=== PATIENT | female | born 1990 | race Caucasian/White ===

== ENCOUNTER → 2018-12-12 | Outpatient (CLI) | payer BC, OTHER | END | disposition home or self-care (01) | LOC: CFH 07:18 | PROVIDERS: ATTEND Family Medicine | DX: Z12.31 Encounter for screening mammogram for malignant neoplasm of breast (principal); N64.89 Other specified disorders of breast; Z80.3 Family history of malignant neoplasm of breast | CPT/HCPCS: 77063; 77067 ==

== ENCOUNTER → 2018-12-27 | Outpatient (CLI) | payer BC | END | disposition home or self-care (01) | LOC: CFH 13:18 | PROVIDERS: ATTEND Family Medicine | DX: N63.10 Unspecified lump in the right breast, unspecified quadrant (principal) | CPT/HCPCS: 76642; 77065 ==

== ENCOUNTER → 2019-01-12 | Outpatient (CLI) | payer BC ==
[~2019-01-12] MED LIST: LIDOCAINE 1%, 20ML ONE; LIDOCAINE 1%-EPI 1:100K, 20ML ONE; SODIUM BICARBONATE 4.2%, 5ML ONE
== END | disposition home or self-care (01) ==
LOC: CFH 08:56
PROVIDERS: ATTEND Surgery
DX: D24.1 Benign neoplasm of right breast (principal); N63.10 Unspecified lump in the right breast, unspecified quadrant
CPT/HCPCS: 19083; 77065; 88305; J3490

== ENCOUNTER 2019-09-02 13:26 | Observation (INO) | payer BC ==
[~2019-09-02] VITALS: Ht 167.6 cm; Wt 104.5 kg
[2019-09-02 13:50] VITALS: BP 121/84
[2019-09-02 14:24] LABS: MICROSCOPIC NOT IND
[2019-09-02] MEDS ORDERED: TERBUTALINE 1 MG/ML, 1ML ONE (17:02)
[2019-09-02] MEDS ORDERED: TERBUTALINE 1 MG/ML, 1ML IV ONE (17:30)
== END 2019-09-02 18:00 | disposition home or self-care (01) ==
LOC: LDOP 13:26 → INTOOBSV 17:08 → LDIP 17:08
PROVIDERS: ADMIT Obstetrics & Gynecology; ATTEND Obstetrics & Gynecology
DX: O60.03 Preterm labor without delivery, third trimester (principal); O26.893 Other specified pregnancy related conditions, third trimester; R10.2 Pelvic and perineal pain; Z3A.32 32 weeks gestation of pregnancy; Z79.899 Other long term (current) drug therapy
CPT/HCPCS: 59025; 81003; 87086; 96374; G0378; J3105

== ENCOUNTER 2019-10-03 15:41 | Outpatient (CLI) | payer BC ==
[~2019-10-03] VITALS: Ht 167.6 cm; Wt 104.0 kg
[2019-10-03 16:25] LABS: BASOPHILS # (AUTO) 0.07 x10^3/uL (0-0.1); BASOPHILS % (AUTO) 1 % (0-1); EOSINOPHILS # (AUTO) 0.05 x10^3/uL (0-0.4); EOSINOPHILS % (AUTO) 1 % (1-7); LYMPHOCYTES # (AUTO) 1.96 x10^3/uL (1-3.4); LYMPHOCYTES % (AUTO) 20 % (22-44); MD NO; MEAN CORPUSCULAR HEMOGLOBIN 30.1 pg (27.0-34.8); MEAN CORPUSCULAR HGB CONC 33.6 g/dL (32.4-35.8); MEAN CORPUSCULAR VOLUME 89.6 fL (80-100); MEAN PLATELET VOLUME 10.6 fL (7.4-10.4); MONOCYTES # (AUTO) 0.52 x10^3/uL (0.2-0.8); MONOCYTES % (AUTO) 5 % (2-9); NEUTROPHILS # (AUTO) 7.07 x10^3/uL (1.8-6.8); NEUTROPHILS % (AUTO) 73 % (42-75); PLATELET COUNT 251 x10^3/uL (130-400); RED BLOOD COUNT 3.74 x10^6/uL (3.82-5.3); RED CELL DISTRIBUTION WIDTH 12.9 % (9.6-15.2)
[2019-10-03 16:26] VITALS: BP 157/88
[2019-10-03 16:35] LABS: CREATININE,URINE RANDOM 30.7 mg/dL
[2019-10-03 16:35] LABS: ALBUMIN 2.6 g/dL (3.4-5.0); ANION GAP 6 mmol/L (5-15); CALCIUM 8.8 mg/dL (8.5-10.1); CHLORIDE 111 mmol/L (98-107)
[2019-10-03 16:40] LABS: ALANINE AMINOTRANSFERASE 18 U/L (12-78); ALKALINE PHOSPHATASE 95 U/L (45-117); BILIRUBIN,TOTAL 0.3 mg/dL (0.2-1.0); CREATININE 0.73 mg/dL (0.55-1.02); TOTAL PROTEIN 6.4 g/dL (6.4-8.2)
[2019-10-03 16:41] LABS: BILIRUBIN, DIRECT < 0.1 mg/dL (0.1-0.2)
[2019-10-03 16:44] LABS: MICROSCOPIC INDICATED
[2019-10-03] MEDS ORDERED: PREN1TAB60 PO (17:34)
[2019-10-03] MEDS ORDERED: LEVO50TA5 PO (17:35)
== END 2019-10-03 17:50 | disposition home or self-care (01) ==
LOC: LDOP 15:41
PROVIDERS: ATTEND Obstetrics & Gynecology
DX: O13.3 Gestational [pregnancy-induced] hypertension without significant proteinuria, third trimester (principal); Z3A.36 36 weeks gestation of pregnancy
CPT/HCPCS: 36415; 59025; 80053; 81001; 82248; 82570; 84156; 84550; 85025

== ENCOUNTER 2019-10-05 07:53 | Inpatient (IN) | payer BC ==
[~2019-10-05] VITALS: Ht 167.6 cm; Wt 103.6 kg
[~2019-10-05 07:53] MED LIST changes: +LEVO50TA5 PO; -LIDOCAINE 1%, 20ML ONE; -LIDOCAINE 1%-EPI 1:100K, 20ML ONE; +PREN1TAB60 PO; -SODIUM BICARBONATE 4.2%, 5ML ONE
[2019-10-05] MEDS ORDERED: D5%-LACTATED RINGERS 1,000 ML IV SCH (20:15)
[2019-10-05] MEDS ORDERED: OXYTOCIN 30U/ 0.9% NaCL 500ML 500 ML IV ONE (20:15)
[2019-10-05] MEDS ORDERED: MISOPROSTOL 25 MCG TABLET ONE (20:23)
[2019-10-05] MEDS ORDERED: NEWBORN KIT ONE (20:23)
[2019-10-05] MEDS ORDERED: OXYTOCIN 30U/ 0.9% NaCL 500ML 500 ML ONE (20:23)
[2019-10-05] MEDS ORDERED: MISOPROSTOL 25 MCG TABLET VG PRN (20:30)
[2019-10-05] MEDS ORDERED: TERBUTALINE 1 MG/ML, 1ML SQ PRN (20:30)
[2019-10-05] MEDS ORDERED: FENTANYL PF 100 MCG/2ML IV PRN (20:30)
[2019-10-05] MEDS ORDERED: FENTANYL PF 100 MCG/2ML IVPush PRN (20:30)
[2019-10-05] MEDS ORDERED: ONDANSETRON 2MG/ML, 2ML IVPush PRN (20:30)
[2019-10-05] MEDS ORDERED: CALCIUM CARBONATE 500 MG TAB.CHEW PO PRN (20:30)
[2019-10-05] MEDS ORDERED: TERBUTALINE 1 MG/ML, 1ML IVPush PRN (20:30)
[2019-10-05 20:46] LABS: BASOPHILS # (AUTO) 0.06 x10^3/uL (0-0.1); BASOPHILS % (AUTO) 1 % (0-1); EOSINOPHILS # (AUTO) 0.03 x10^3/uL (0-0.4); EOSINOPHILS % (AUTO) 0 % (1-7); LYMPHOCYTES # (AUTO) 1.87 x10^3/uL (1-3.4); LYMPHOCYTES % (AUTO) 17 % (22-44); MD NO; MEAN CORPUSCULAR HEMOGLOBIN 29.5 pg (27.0-34.8); MEAN CORPUSCULAR HGB CONC 32.6 g/dL (32.4-35.8); MEAN CORPUSCULAR VOLUME 90.6 fL (80-100); MEAN PLATELET VOLUME 10.7 fL (7.4-10.4); MONOCYTES # (AUTO) 0.83 x10^3/uL (0.2-0.8); MONOCYTES % (AUTO) 8 % (2-9); NEUTROPHILS # (AUTO) 8.11 x10^3/uL (1.8-6.8); NEUTROPHILS % (AUTO) 74 % (42-75); PLATELET COUNT 266 x10^3/uL (130-400); RED BLOOD COUNT 3.78 x10^6/uL (3.82-5.3); RED CELL DISTRIBUTION WIDTH 12.7 % (9.6-15.2)
[2019-10-05 20:56] VITALS: BP 144/96
[2019-10-05 20:56] LABS: ALANINE AMINOTRANSFERASE 17 U/L (12-78); ALBUMIN 2.6 g/dL (3.4-5.0); ANION GAP 6 mmol/L (5-15); CALCIUM 9.4 mg/dL (8.5-10.1); CHLORIDE 109 mmol/L (98-107); CREATININE 0.78 mg/dL (0.55-1.02)
[2019-10-05 20:58] LABS: ALKALINE PHOSPHATASE 93 U/L (45-117); BILIRUBIN,TOTAL 0.3 mg/dL (0.2-1.0); TOTAL PROTEIN 6.2 g/dL (6.4-8.2)
[2019-10-05 22:24] LABS: MICROSCOPIC NOT IND
[2019-10-05 22:38] LABS: CREATININE,URINE RANDOM 30.7 mg/dL
[2019-10-05] MEDS ORDERED: FENTANYL PF 100 MCG/2ML ONE (22:54)
[2019-10-05] MEDS ORDERED: CALCIUM CARBONATE 500 MG TAB.CHEW ONE (22:55)
[2019-10-06] MEDS ORDERED: CALCIUM CARBONATE 500 MG TAB.CHEW ONE (02:07)
[2019-10-06] MEDS: LEVOTHYROXINE 50 MCG TABLET PO SCH (07:00)
[2019-10-06] MEDS: LACTATED RINGERS 1,000 ML IV SCH ×4 (08:18→22:33)
[2019-10-06] MEDS ORDERED: hydrALAzine 20 MG/ML, 1ML IVPush ONE (09:00)
[2019-10-06] MEDS ORDERED: LABETALOL 5MG/ML, 20ML IVPush PRN ×4 (09:00→20:00)
[2019-10-06] MEDS ORDERED: LABETALOL 5MG/ML, 20ML ONE (09:02)
[2019-10-06] MEDS ORDERED: ACETAMINOPHEN 500 MG TABLET ONE ×2 (10:36→16:50)
[2019-10-06] MEDS ORDERED: ACETAMINOPHEN 500 MG TABLET PO ONE (11:00)
[2019-10-06] MEDS ORDERED: FAMOTIDINE 20 MG TABLET ONE (13:01)
[2019-10-06] MEDS ORDERED: FAMOTIDINE 20 MG TABLET PO PRN (13:30)
[2019-10-06] MEDS ORDERED: FENTANYL/BUPIV./NS/PF 250 ML EPIDCONT ONE (13:56)
[2019-10-06] MEDS ORDERED: FENTANYL/BUPIV./NS/PF 250 ML EPIDCONT SCH (14:33)
[2019-10-06] MEDS ORDERED: LACTATED RINGERS 1,000 ML IVBOLUS PRN (15:00)
[2019-10-06] MEDS ORDERED: NALOXONE 0.4 MG/ML, 1ML IVPush PRN (15:00)
[2019-10-06] MEDS ORDERED: EPHEDRINE 50 MG/ML, 1ML IVPush PRN (15:00)
[2019-10-06] MEDS ORDERED: ACETAMINOPHEN 500 MG TABLET PO PRN (17:00)
[2019-10-06] MEDS ORDERED: LIDOCAINE-MPF 2% ,5ML ONE (18:10)
[2019-10-06 19:35] VITALS: BP 168/103
[2019-10-06] MEDS ORDERED: ACETAMINOPHEN 325 MG TABLET PO PRN (22:30)
[2019-10-06] MEDS ORDERED: MISOPROSTOL 200 MCG TABLET PR PRN (22:30)
[2019-10-06] MEDS ORDERED: BISACODYL 10 MG SUPP PR PRN (22:30)
[2019-10-06] MEDS ORDERED: RHOGAM FROM BLOOD BANK 1 NOTE EA IM/IV ONE (22:30)
[2019-10-06] MEDS ORDERED: OXYcodone/APAP 5/325MG TABLET PO PRN (22:30)
[2019-10-06] MEDS ORDERED: ONDANSETRON 2MG/ML, 2ML IV PRN (22:30)
[2019-10-06] MEDS ORDERED: LABETALOL 5MG/ML, 20ML IVPush STA (22:59)
[2019-10-07] VITALS (10 sets, daily range): BP systolic 112–155; BP diastolic 72–96
[2019-10-07] MEDS ORDERED: OXYTOCIN 30U/ 0.9% NaCL 500ML 500 ML ONE (00:17)
[2019-10-07] MEDS: LACTATED RINGERS 1,000 ML IV SCH ×3 (00:20→22:33)
[2019-10-07] MEDS: OXYTOCIN 30U/ 0.9% NaCL 500ML 500 ML IV SCH ×3 (00:20→18:14)
[2019-10-07] MEDS: LEVOTHYROXINE 50 MCG TABLET PO SCH (06:11)
[2019-10-07] MEDS: IBUPROFEN 800 MG TABLET PO PRN ×2 (08:22→16:42)
[2019-10-07] MEDS: HYDROcodone/APAP 5/325 TABLET PO PRN ×4 (08:23→23:43)
[2019-10-07] MEDS: LABETALOL 100 MG TABLET PO SCH ×2 (08:23→16:42)
[2019-10-07] MEDS: PRENATAL VIT/IRON/FA 1 EACH TABLET PO SCH (08:23)
[2019-10-07] MEDS: DOCUSATE 100 MG CAPSULE PO PRN ×2 (08:24→18:56)
[2019-10-07 08:46] LABS: BASOPHILS # (AUTO) 0.03 x10^3/uL (0-0.1); BASOPHILS % (AUTO) 0 % (0-1); EOSINOPHILS # (AUTO) 0.01 x10^3/uL (0-0.4); EOSINOPHILS % (AUTO) 0 % (1-7); LYMPHOCYTES # (AUTO) 1.35 x10^3/uL (1-3.4); LYMPHOCYTES % (AUTO) 10 % (22-44); MD NO; MEAN CORPUSCULAR HGB CONC 33.3 g/dL (32.4-35.8); MEAN CORPUSCULAR VOLUME 89.9 fL (80-100); MEAN PLATELET VOLUME 11.6 fL (7.4-10.4); MONOCYTES # (AUTO) 0.84 x10^3/uL (0.2-0.8); MONOCYTES % (AUTO) 6 % (2-9); NEUTROPHILS % (AUTO) 84 % (42-75); PLATELET COUNT 211 x10^3/uL (130-400); RED CELL DISTRIBUTION WIDTH 13.4 % (9.6-15.2)
[2019-10-08] VITALS: BP 147/90
[2019-10-08] MEDS: IBUPROFEN 200 MG TABLET PO PRN ×2 (01:24→07:29)
[2019-10-08 04:00] VITALS: BP 122/80
[2019-10-08] MEDS: LEVOTHYROXINE 50 MCG TABLET PO SCH (06:20)
[2019-10-08 07:10] VITALS: BP 137/88
[2019-10-08] MEDS: DOCUSATE 100 MG CAPSULE PO PRN (07:29)
[2019-10-08] MEDS: HYDROcodone/APAP 5/325 TABLET PO PRN (07:29)
[2019-10-08] MEDS: PRENATAL VIT/IRON/FA 1 EACH TABLET PO SCH (07:29)
[2019-10-08] MEDS: LABETALOL 100 MG TABLET PO SCH (07:29)
[2019-10-08] MEDS ORDERED: IBUP-1223 PO (09:30)
[2019-10-08] MEDS ORDERED: DOCU-131 PO (09:30)
[2019-10-08] MEDS ORDERED: LABE100T6 PO (09:31)
== END 2019-10-08 12:00 | disposition home or self-care (01) | DRG 807 ==
LOC: LDIP 20:03 → 2NW 10-07 01:55
PROVIDERS: ADMIT Obstetrics & Gynecology; ATTEND Obstetrics & Gynecology
PROC: 10E0XZZ Delivery of Products of Conception, External Approach (ICD-10-PCS; principal; 2019-10-06)
PROC: 0UQMXZZ Repair Vulva, External Approach (ICD-10-PCS; 2019-10-06)
PROC: 3E0R3BZ Introduction of Anesthetic Agent into Spinal Canal, Percutaneous Approach (ICD-10-PCS; 2019-10-06)
PROC: 00HU33Z Insertion of Infusion Device into Spinal Canal, Percutaneous Approach (ICD-10-PCS; 2019-10-06)
DX: O14.04 Mild to moderate pre-eclampsia, complicating childbirth (principal); Z37.0 Single live birth; L98.9 Disorder of the skin and subcutaneous tissue, unspecified; E03.9 Hypothyroidism, unspecified; O99.284 Endocrine, nutritional and metabolic diseases complicating childbirth; O99.72 Diseases of the skin and subcutaneous tissue complicating childbirth; Z3A.37 37 weeks gestation of pregnancy; O71.82 Other specified trauma to perineum and vulva; Z20.828 Contact with and (suspected) exposure to other viral communicable diseases
CPT/HCPCS: 36415; J3490; J7121; 80053; 81003; 82570; 82803; 84156; 84550; 85025; 86592; 86850; 86900; 87635; 88305; G0378; J3010; J2590; J7120

== ENCOUNTER 2019-10-10 15:59 | Emergency (ER) | payer BC ==
[~2019-10-10] VITALS: Ht 167.6 cm; Wt 94.0 kg
[~2019-10-10 15:59] MED LIST changes: +DOCU-131 PO; +IBUP-1223 PO; +LABE100T6 PO
--- NOTE | 2019-10-10 16:04 | NUR ---
[employer]. PT CALLED X1 FROM TRIAGE, PT IN RR.
--- NOTE | 2019-10-10 16:29 | NUR ---
PT CAME IN CO OF EPIFGASTRIC PAIN THAT SHE DESCRIBES SHARP. PT GAVE VAGINAL ON WEDNESDAY WITH NO COMPLICATIONS. PT HAS HTN RELATED TO BUT SHE TAKES MEDICATION FOR IT. PT IS ACCOMPANIED BY , EKG COMPLETE. PROVIDER BEDSIDE FOR ASSESSMENT
[2019-10-10 16:53] LABS: ALANINE AMINOTRANSFERASE 38 U/L (12-78); ALBUMIN 2.6 g/dL (3.4-5.0); ANION GAP 9 mmol/L (5-15); CALCIUM 8.6 mg/dL (8.5-10.1); CHLORIDE 112 mmol/L (98-107); CREATININE 0.85 mg/dL (0.55-1.02); INTERNATIONAL NORMALIZED RATIO 0.91 (0.93-1.1); PROTHROMBIN TIME 9.4 Seconds (9.6-11.5)
[2019-10-10 16:56] LABS: ALKALINE PHOSPHATASE 120 U/L (45-117); BILIRUBIN,TOTAL 0.4 mg/dL (0.2-1.0); TOTAL PROTEIN 6.2 g/dL (6.4-8.2)
[2019-10-10 17:04] LABS: BASOPHILS # (AUTO) 0.03 x10^3/uL (0-0.1); BASOPHILS % (AUTO) 0 % (0-1); EOSINOPHILS # (AUTO) 0.27 x10^3/uL (0-0.4); EOSINOPHILS % (AUTO) 3 % (1-7); LYMPHOCYTES # (AUTO) 1.79 x10^3/uL (1-3.4); LYMPHOCYTES % (AUTO) 19 % (22-44); MD NO; MEAN CORPUSCULAR HEMOGLOBIN 30.1 pg (27.0-34.8); MEAN CORPUSCULAR HGB CONC 33.1 g/dL (32.4-35.8); MEAN PLATELET VOLUME 10.9 fL (7.4-10.4); MONOCYTES # (AUTO) 0.47 x10^3/uL (0.2-0.8); MONOCYTES % (AUTO) 5 % (2-9); NEUTROPHILS # (AUTO) 6.76 x10^3/uL (1.8-6.8); NEUTROPHILS % (AUTO) 73 % (42-75); PLATELET COUNT 295 x10^3/uL (130-400); RED BLOOD COUNT 3.63 x10^6/uL (3.82-5.3); RED CELL DISTRIBUTION WIDTH 13.2 % (9.6-15.2)
[2019-10-10 17:22] LABS: MICROSCOPIC AUTO
--- NOTE | 2019-10-10 17:40 | NUR ---
DR. MCKEON AT BEDSIDE.
[2019-10-10] MEDS ORDERED: hydrALAzine 20 MG/ML, 1ML ONE (17:55)
[2019-10-10] MEDS ORDERED: SODIUM CHLORIDE FLUSH 10ML SYR IVF ONE (18:00)
[2019-10-10] MEDS ORDERED: hydrALAzine 20 MG/ML, 1ML IV ONE (18:00)
[2019-10-10 18:24] VITALS: BP 153/91
--- NOTE | 2019-10-10 19:00 | NUR ---
PT ANXIOUS TO LEAVE, REPORTS SHE UNDERSTANDS SHE WILL NEED TO CHECK BP AT HOME AND UNDERSTANDS SHE WILL NEED TO TAKE BP MEDICATION PRESCRIBED BY HER DOCTOR, PT VERBALIZED SHE WILL RETURN IF BP GETS HIGHER THAN TODAY IN ER AND THE RISKS OF SEIZURES.
== END 2019-10-10 19:11 | disposition home or self-care (01) ==
LOC: ED 16:53
DX: R06.00 Dyspnea, unspecified (principal); I10 Essential (primary) hypertension; E03.9 Hypothyroidism, unspecified; R94.31 Abnormal electrocardiogram [ECG] [EKG]; R06.02 Shortness of breath
CPT/HCPCS: 36415; 71045; 80053; 81001; 84550; 85025; 85610; 85730; 87077; 87086; 93005; 96374; 99285; J0360; 87186